=== PATIENT | male | born 1955 | race Caucasian/White ===

== ENCOUNTER 2019-02-08 17:09 | Emergency (ER) | payer BC ==
[2019-02-08] MEDS ORDERED: TETANUS & DIPHTHERIA TOX,ADULT 0.5 ML VIAL ONE (17:39)
[2019-02-08] MEDS ORDERED: LIDOCAINE 1% 20 ML MDV ONE (17:39)
--- NOTE | 2019-02-08 18:15 | EDPHYS ---
Physician Documentation [facility] Name: Shahriar Timmons Age: 63 yrs Sex: Male : 1955 Arrival Date: 02/08/2019 Time: 17:15 Bed 8 Private MD: ED Physician Jimmy Schmitz HPI: 02/08 17:20 This 63 yrs old Male presents to ER via Ambulatory with complaints of jmm Puncture Wound To Leg. 17:20 The patient presents with an injury. Onset: The symptoms/episode began/occurred jmm acutely, just prior to arrival. Modifying factors: The symptoms are alleviated by nothing. the symptoms are aggravated by nothing. Associated signs and symptoms: Pertinent positives: swelling. This is a 63 year old male with no known chronic medical conditions that presents to the ED with complaints of right thigh pain after accidently stabbing himself with a pocket knife. Patient is not UTD on immunizations. . Historical: - Allergies: 17:36 No Known Allergies; la1 - PMHx: 17:36 None; la1 - Immunization history:: Adult Immunizations up to date. - Social history:: Smoking status: Patient uses tobacco products, smokes two packs cigarettes per day. - Ebola Screening: : Patient denies travel to an Ebola-affected area in the 21 days before illness onset. ROS: 17:20 Constitutional: Negative for fever, chills, and weight loss, Cardiovascular: Negative jmm for chest pain, palpitations, and edema, Respiratory: Negative for shortness of breath, cough, wheezing, and pleuritic chest pain. 17:20 Skin: Positive for laceration(s). 17:20 All other systems are negative. Exam: 17:20 Constitutional: This is a well developed, well nourished patient who is awake, alert, jmm and in no acute distress. Head/Face: atraumatic. Eyes: EOMI, no conjunctival erythema appreciated ENT: Moist Mucus Membranes Neck: Trachea midline, Supple Chest/axilla: Normal chest wall appearance and motion. Cardiovascular: Regular rate and rhythm. No edema appreciated Respiratory: Normal respirations, no respiratory distress appreciated Abdomen/GI: Non distended, soft Back: Normal ROM 17:20 Musculoskeletal/extremity: ROM: intact in all extremities. 17:20 Skin: 1.5 cm laceration noted to the right posterior thigh, no active bleeding appreciated. 17:20 Neuro: Orientation: is normal, Mentation: is normal, Memory: is normal. 17:20 Psych: Behavior/mood is pleasant, cooperative. Vital Signs: 17:36 BP 134 / 91; Pulse 69; Resp 16; Temp 97.6; Pulse Ox 100% on R/A; Weight 77.11 kg; la1 Height 5 ft. 9 in. (175.26 cm); 17:36 Body Mass Index 25.10 (77.11 kg, 175.26 cm) la1 Laceration: 18:13 Wound Repair of 1.5cm ( 0.6in ) subcutaneous laceration to right hamstring. Distal m neuro/vascular/tendon intact. Anesthesia: Local anesthetic administered with 5 mls of 1% lidocaine. Wound prep: Simple cleansing with betadine by me. Skin closed with 2 4-0 Prolene using simple sutures and sterile technique. Patient tolerated well. MDM: 17:20 Patient medically screened. fallon 18:13 Data reviewed: vital signs, nurses notes. Counseling: I had a detailed discussion with hi the patient and/or guardian regarding: the historical points, exam findings, and any diagnostic results supporting the discharge/admit diagnosis, the need for outpatient follow up, to return to the emergency department if symptoms worsen or persist or if there are any questions or concerns that arise at home. ED course: Patient given wound infection return precautions. Patient understood and agrees with the plan of care. . 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 Lot #: [id number]. } Route: IM; Site: right deltoid; 17:50 Drug: Lidocaine (1 %) 20 ml Volume: 20 ml; Route: Infiltration; la1 Disposition: 02/08/19 18:15 Discharged to Home. Impression: Right Leg Laceration. - Condition is Stable. - Discharge Instructions: Laceration Care, Adult. - Prescriptions for Cephalexin 500 mg Oral Capsule - take 1 capsule by ORAL route every 6 hours for 10 days; 40 capsule. - Medication Reconciliation Form, Thank You Letter, Antibiotic Education, Prescription Opioid Use form. - Follow up: Private Physician; When: 7 - 10 days; Reason: Recheck today's complaints, Continuance of care, Staple/Suture removal, Re-evaluation by your physician. Addendum: 02/10/2019 13:16 Co-signature as Attending Physician, Jimmy Schmitz MD I agree with the assessment and c weinstein plan of care. Signatures: Jimmy Schmitz MD MD cha Mickail, Joel, PA PA jmm Attema, Lee RN RN la1 Corrections: (The following items were deleted from the chart) 02/08 18:29 18:15 02/08/2019 18:15 Discharged to Home. Impression: Right Leg Laceration. Condition la1 is Stable. Forms are Medication Reconciliation Form, Thank You Letter, Antibiotic Education, Prescription Opioid Use. Follow up: Private Physician; When: 7 - 10 days; Reason: Recheck today's complaints, Continuance of care, Staple/Suture removal, Re-evaluation by your physician. hi
--- NOTE | 2019-02-08 18:15 | ER ---
Nurse's Notes [facility] Name: Shahriar Timmons Age: 63 yrs Sex: Male : 1955 Arrival Date: 02/08/2019 Time: 17:15 Bed 8 Private MD: Diagnosis: Right Leg Laceration Presentation: 02/08 17:35 Presenting complaint: Patient states: I was trying to close my pocket knife against my la1 leg and accidently poked myself in the right thigh. Transition of care: patient was not received from another setting of care. Onset of symptoms was February 08, 2019. Risk Assessment: Do you want to hurt yourself or someone else? Patient reports no desire to harm self or others. Initial Sepsis Screen: Does the patient meet any 2 criteria? No. Patient's initial sepsis screen is negative. Does the patient have a suspected source of infection? No. Patient's initial sepsis screen is negative. Care prior to arrival: None. 17:35 Method Of Arrival: Ambulatory la1 17:35 Acuity: SB 4 la1 Historical: - Allergies: 17:36 No Known Allergies; la1 - PMHx: 17:36 None; la1 - Immunization history:: Adult Immunizations up to date. - Social history:: Smoking status: Patient uses tobacco products, smokes two packs cigarettes per day. - Ebola Screening: : Patient denies travel to an Ebola-affected area in the 21 days before illness onset. Screenin:37 Abuse screen: Denies threats or abuse. Nutritional screening: No deficits noted. la1 Tuberculosis screening: No symptoms or risk factors identified. Fall Risk None identified. Assessment: 17:36 General: Appears in no apparent distress. Behavior is calm, cooperative. Pain: la1 Complains of pain in right hamstring. Neuro: Level of Consciousness is awake, alert, obeys commands, Oriented to person, place, time, situation. Cardiovascular: Capillary refill < 3 seconds Patient's skin is warm and dry. Cardiovascular:. Respiratory: Airway is patent Respiratory effort is even, unlabored, Respiratory pattern is regular, symmetrical. GI: No signs and/or symptoms were reported involving the gastrointestinal system. : No signs and/or symptoms were reported regarding the genitourinary system. Musculoskeletal: Circulation, motion, and sensation intact. Capillary refill < 3 seconds, is brisk, in bilateral toes. Vital Signs: 17:36 BP 134 / 91; Pulse 69; Resp 16; Temp 97.6; Pulse Ox 100% on R/A; Weight 77.11 kg; la1 Height 5 ft. 9 in. (175.26 cm); 17:36 Body Mass Index 25.10 (77.11 kg, 175.26 cm) la1 ED Course: 17:15 Patient arrived in ED. cf2 17:19 Roger Paige PA is PHCP. [facility] 17:19 Jimmy Schmitz MD is Attending Physician. [facility] 17:35 Handy Willard, RN is Primary Nurse. la1 17:35 Triage completed. la1 17:36 Arm band placed on left wrist. la1 17:37 Patient has correct armband on for positive identification. la1 18:29 No provider procedures requiring assistance completed. Patient did not have IV access la1 during this emergency room visit. 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 Exp: la1 09/06/2020. Lot #: [id number]. } Route: IM; Site: right deltoid; 17:50 Drug: Lidocaine (1 %) 20 ml Volume: 20 ml; Route: Infiltration; la1 Outcome: 18:15 Discharge ordered by . [facility] 18:29 Discharged to home ambulatory. la1 18:29 Condition: good 18:29 Discharge instructions given to patient, Instructed on discharge instructions, follow up and referral plans. medication usage, Demonstrated understanding of instructions, follow-up care, medications, wound care, Prescriptions given X 1. 18:29 Patient left the ED. la1 Signatures: Roger Paige PA PA Handy Betancourt, RN RN la1 Phylicia Maxwell cf2
[2019-02-08 21:00] VITALS: BP 134/91; TEMP 97.6; O2SAT 100
== END 2019-02-08 18:29 | disposition home or self-care (01) ==
LOC: ER 17:09
PROC: 0JQL0ZZ Repair Right Upper Leg Subcutaneous Tissue and Fascia, Open Approach (ICD-10-PCS; principal; 2019-02-08)
DX: S71.111A Laceration without foreign body, right thigh, initial encounter (principal); W26.0XXA Contact with knife, initial encounter; Y93.9 Activity, unspecified; Y92.9 Unspecified place or not applicable; F17.210 Nicotine dependence, cigarettes, uncomplicated; Z23 Encounter for immunization
CPT/HCPCS: 90471; 90714; 99283

== ENCOUNTER 2022-10-02 04:39 | Observation (INO) | payer OTHER ==
[2022-10-02] MEDS ORDERED: ALBUTEROL 2.5 MG/3 ML NEB SOL ONE ×2 (05:29→05:59)
[2022-10-02] MEDS ORDERED: METHYLPREDNISOLONE 125 MG INJ ONE (05:29)
[2022-10-02] MEDS ORDERED: IPRATROPIUM BROM 0.5MG/2.5ML ONE (05:29)
[2022-10-02] MEDS ORDERED: NA CHLORIDE 0.9% 1,000 ML ONE (05:30)
[2022-10-02] MEDS ORDERED: GUAIFENESIN/DM 5 ML UCUP ONE (05:31)
[2022-10-02 05:51] LABS: Absolute Lymphocytes (CBC) 0.2 K/uL (0.7-4.9); Hematocrit 37.1 % (39.6-49.0); MCV 106.8 fL (80-100); MPV 9.1 fL (7.6-11.3); Protime INR 1.07; RBC Red Blood Cell Count 3.47 M/uL (4.33-5.43)
[2022-10-02 06:08] LABS: Albumin 2.7 g/dL (3.4-5.0); Bilirubin Direct 0.4 mg/dL (0-0.2); Bilirubin Indirect, Calculated 0.4 mg/dL (0.2-0.8); Bilirubin Total 0.8 mg/dL (0.2-1.0); Protein, Total 6.5 g/dL (6.4-8.2); Troponin High Sensitivity 13.9 pg/mL (<58.9)
[2022-10-02] MEDS ORDERED: Magnesium Sulfate 2gm IVPB 2 G/50 ML BAG IV ONE (06:36)
[2022-10-02] MEDS ORDERED: D5 0.9 NS 1,000 ML IV ONE (06:37)
[2022-10-02] MEDS ORDERED: D10W 250 ML IV ONE (06:37)
--- NOTE | 2022-10-02 06:51 | EDPHYS ---
Physician Documentation [facility] Name: Shahriar Timmons Age: 67 yrs Sex: Male : 1955 Arrival Date: 10/02/2022 Time: 04:39 Bed 8 Private MD: ED Physician Eliazar Dave HPI: 10/02 04:54 This 67 yrs old Male presents to ER via Ambulatory with complaints of sp4 Breathing Difficulty. 06:41 67-year-old male presents with acute worsening of shortness of breath, wheezing, and sp4 cough. Patient reports 49-year-old long history of tobacco smoking. Patient smoked up to 2 packs of cigarettes a day. Patient reports that his shortness of breath is markedly worsened last night, he has not been properly diagnosed with COPD yet. Patient's primary physician is Dr. Sands.. Historical: - Allergies: 04:50 Quinidine Sulfate; as6 - PMHx: 04:50 None; as6 - PSHx: 04:50 neck; hip; ankle; as6 - Immunization history:: Client reports having NOT received the Covid vaccine. - Social history:: Smoking status: Patient reports the use of cigarette tobacco products, smokes one-half pack cigarettes per day, smokes one pack cigarettes per day. - Family history:: not pertinent. ROS: 06:41 Constitutional: Negative for fever, chills, and weight loss, Eyes: Negative for injury, sp4 pain, redness, and discharge, ENT: Negative for injury, pain, and discharge, Neck: Negative for injury, pain, and swelling, Cardiovascular: Negative for chest pain, palpitations, and edema, Respiratory: Positive for shortness of breath, wheezing, cough. Negative for pleuritic chest pain Abdomen/GI: Negative for abdominal pain, nausea, vomiting, diarrhea, and constipation, Back: Negative for injury and pain, : Negative for injury, bleeding, discharge, and swelling, MS/Extremity: Negative for injury and deformity, Skin: Negative for injury, rash, and discoloration, Neuro: Negative for headache, weakness, numbness, tingling, and seizure, Psych: Negative for depression, anxiety, Allergy/Immunology: Negative for hives, rash, and allergies Endocrine: Negative for neck swelling, polydipsia, polyuria, polyphagia, and weight changes Hematologic/Lymphatic: Negative for swollen nodes, abnormal bleeding, and unusual bruising Exam: 06:41 Constitutional: This is a well developed, well nourished patient who is awake, alert, sp4 and in no acute distress. Ill-appearing but nontoxic. Head/Face: Normocephalic, atraumatic. Eyes: Pupils equal round and reactive to light, extra-ocular motions intact. Lids and lashes normal. Conjunctiva and sclera are not injected. Cornea within normal limits. Periorbital areas with no swelling, redness, or edema. ENT: Nares patent. No nasal discharge, no septal abnormalities noted. Tympanic membranes are normal and external auditory canals are clear. Oropharynx with no redness, swelling, or masses, exudates, or evidence of obstruction, uvula midline. Mucous membranes moist. Neck: Trachea midline, no thyromegaly or masses palpated, and no cervical lymphadenopathy. Supple, full range of motion without nuchal rigidity, or vertebral point tenderness. Chest/axilla: Normal chest wall appearance and motion. Nontender with no deformity. No lesions are appreciated. Cardiovascular: Regular rate and rhythm with a normal S1 and S2. No gallops, murmurs, or rubs. Normal PMI, no JVD. No pulse deficits. Respiratory: Lungs have equal breath sounds bilaterally, bilateral expiratory wheezing on auscultation, mild retractions, dyspnea and tachypnea. Abdomen/GI: Soft, non-tender, with normal bowel sounds. No distension or tympany. No guarding or rebound. No evidence of tenderness throughout. Back: No spinal tenderness. No costovertebral tenderness. Male : Normal genitalia with no discharge or lesions. Skin: Warm, dry with normal turgor. Normal color with no rashes, no lesions, and no evidence of cellulitis. MS/ Extremity: Pulses equal, no cyanosis. Neurovascular intact. Full, normal range of motion. Neuro: Awake and alert, GCS 15, oriented to person, place, time, and situation. Cranial nerves II-XII grossly intact. Motor strength 5/5 in all extremities. Sensory grossly intact. Psych: Awake, alert, with orientation to person, place and time. Behavior, mood, and affect are within normal limits 06:41 ECG was reviewed by the Attending Physician. Sinus tachycardia at a rate of 108, EKG sp4 time 0508, there are premature atrial complexes. Otherwise normal EKG Vital Signs: 04:47 BP 128 / 58; Pulse 117; Resp 18 S; Temp 99.5(O); Pulse Ox 98% on R/A; Weight 74.84 kg as6 (R); Height 5 ft. 9 in. (R); 05:45 BP 118 / 70; Pulse 113; Resp 20; Pulse Ox 98% on R/A; kd3 04:47 Body Mass Index 24.37 (74.84 kg, 175.26 cm) as6 MDM: 04:54 Patient medically screened. sp4 06:49 ED course: EXAM: XR Chest, 1 View CLINICAL HISTORY: The patient is 67 years old and is sp4 Male; COPD TECHNIQUE: Frontal view of the chest. COMPARISON: No relevant prior studies available. FINDINGS: Lungs: Unremarkable. No consolidation. Pleural space: Unremarkable. No pneumothorax. Heart: Unremarkable. Mediastinum: Unremarkable. Bones/joints: Disc space narrowing with degenerative endplate changes in the spine. Postsurgical changes in the cervical spine. IMPRESSION: No acute findings in the chest. . 06:52 Differential diagnosis: Anemia asthma, Bronchitis CHF exacerbation, Chronic Obstructive sp4 Pulmonary Disease Myocardial Infarction pneumonia, Psychogenic pulmonary edema, Pulmonary Embolism Sepsis Unstable Angina. Data reviewed: vital signs, nurses notes, old medical records, lab test result(s), cardiac enzymes, CBC, electrolytes, Flu: negative hepatic panel, EKG, radiologic studies, plain films. Consideration of Admission/Observation Patient was admitted/placed on observation. Escalation of care including admission/observation considered. Management of patient was discussed with the following: Hospitalist: Dr. Sands. ED course: Patient's labs reveal significant hyponatremia sodium 122, unusual hypoglycemia blood sugar 43, hypochloremia, hypoalbuminemia albumin 2.7, hypomagnesemia magnesium of 1. Also BNP is elevated at 1586. Patient warrants slow saline infusion with D5 for electrolyte correction and also IV magnesium infusion. He warrants admission for COPD management and proper diagnosis perhaps pulmonary test . Patient was discussed with his primary MD and admitted for hospital management. . 10/02 04:53 Order name: BMP; Complete Time: 06:18 sp4 10/02 04:53 Order name: Blood Culture Adult (2) sp4 10/02 04:53 Order name: CBC with Diff sp4 10/02 04:53 Order name: CPK; Complete Time: 06:18 sp4 10/02 04:53 Order name: Hepatic Function; Complete Time: 06:18 sp4 10/02 04:53 Order name: Lipase; Complete Time: 06:18 sp4 10/02 04:53 Order name: Magnesium; Complete Time: 06:18 sp4 10/02 04:53 Order name: NT PRO-BNP; Complete Time: 06:18 sp4 10/02 04:53 Order name: PT-INR; Complete Time: 06:18 sp4 10/02 04:53 Order name: Ptt, Activated; Complete Time: 06:18 sp4 10/02 04:53 Order name: Troponin HS; Complete Time: 06:18 sp4 10/02 05:58 Order name: CBC Smear Scan EDMS 10/02 07:09 Order name: Glucose, Ancillary Testing EDMS 10/02 04:55 Order name: Chest Single View XRAY sp4 10/02 04:53 Order name: EKG; Complete Time: 04:54 sp4 10/02 04:53 Order name: Cardiac monitoring; Complete Time: 05:43 sp4 10/02 04:53 Order name: EKG - Nurse/Tech; Complete Time: 05:43 sp4 10/02 04:53 Order name: IV Saline Lock; Complete Time: 05:43 sp4 10/02 04:53 Order name: Labs collected and sent; Complete Time: 05:43 sp4 10/02 04:53 Order name: O2 Per Protocol; Complete Time: 05:43 sp4 10/02 04:53 Order name: O2 Sat Monitoring; Complete Time: 05:43 sp4 EC:41 Rate is 108 beats/min. Rhythm is irregular, Sinus tachycardia with PACs. QRS Baker is sp4 Normal. MA interval is normal. QRS interval is normal. QT interval is normal. T waves are Normal. No ST changes noted. Clinical impression: No evidence of ischemia. Interpreted by me. Administered Medications: 05:43 Drug: Albuterol Inhalation 2.5 mg Route: Inhalation; kd3 05:43 Drug: MethylPrednisoLONE IVP 125 mg Route: IVP; Site: right antecubital; kd3 07:52 Follow up: Response: No adverse reaction ph 05:43 Drug: Dextromethorphan-Guaifenesin PO Liquid 10 mg-100 mg/5 mL 10 ml Route: PO; kd3 07:51 Follow up: Response: No adverse reaction ph 05:43 Drug: Ipratropium Inhalation Aerosol 0.5 mg Route: Inhalation; kd3 07:51 Follow up: Response: No adverse reaction ph 05:43 Drug: NS 0.9% IV 1000 ml Route: IV; Rate: 125 ml/hr; Site: left forearm; kd3 06:34 Follow up: IV Status: Order to discontinue infusion; IV Intake: 200ml kd3 06:08 Drug: Albuterol Inhalation 2.5 mg Route: Inhalation; kd3 06:34 Drug: D50W IVP 50 ml Route: IVP; Site: right forearm; kd3 07:49 Follow up: Response: No adverse reaction; Blood sugar is elevated ph 06:34 Drug: Magnesium Sulfate IVPB 2 grams Route: IVPB; Infused Over: 2 hrs; Site: right kd3 forearm; 07:49 Follow up: Response: No adverse reaction; IV Status: Infusion continued upon admission ph 06:34 Drug: D5-NS IV 1000 ml Route: IV; Rate: 125 ml/hr; Site: right forearm; kd3 07:49 Follow up: Response: No adverse reaction; IV Status: Infusion continued upon admission ph 07:40 Drug: Albuterol Inhalation 2.5 mg Route: Inhalation; ph Disposition Summary: 10/02/22 06:50 Hospitalization Ordered Hospitalization Status: Inpatient Admission sp4 Provider: Atilio Sands4 Location: Telemetry/[facility] (Inpatient) sp4 Condition: Stable sp4 Problem: new sp4 Symptoms: have improved sp4 Bed/Room Type: Standard sp4 Room Assignment: 214(10/02/22 07:35) Diagnosis - COPD/ Chronic obstructive pulmonary disease with (acute) exacerbation sp4 - Acute hyponatremia, normovolemic hyponatremia, hypoglycemia, hypomagnesemia. sp4 Exacerbation of chronic bronchitis Forms: - Medication Reconciliation Form sp4 - SBAR form sp4 Signatures: Dispatcher [employer] Nevaeh Perez RN RN dw Hall, Patricia RN RN Angie Castaneda Ashby, RN RN as6 Nellie Perez RN RN kd3 Eliazar Dave MD MD sp4 Corrections: (The following items were deleted from the chart) 07:32 06:50 sp4 eb 07:35 07:32 211 eb dw
--- NOTE | 2022-10-02 06:51 | ER ---
Nurse's Notes [facility] Name: Shahriar Timmons Age: 67 yrs Sex: Male : 1955 Arrival Date: 10/02/2022 Time: 04:39 Bed 8 Private MD: Diagnosis: COPD/ Chronic obstructive pulmonary disease with (acute) exacerbation;Acute hyponatremia, normovolemic hyponatremia, hypoglycemia, hypomagnesemia. Exacerbation of chronic bronchitis Presentation: 10/02 04:47 Chief complaint: Patient states: "I am having trouble breathing". Coronavirus screen: as6 At this time, the client does not indicate any symptoms associated with coronavirus-19. Ebola Screen: No symptoms or risks identified at this time. Initial Sepsis Screen: Does the patient meet any 2 criteria? No. Patient's initial sepsis screen is negative. Does the patient have a suspected source of infection? No. Patient's initial sepsis screen is negative. Risk Assessment: Do you want to hurt yourself or someone else? Patient reports no desire to harm self or others. Onset of symptoms was October 02, 2022. 04:47 Method Of Arrival: Ambulatory as6 04:47 Acuity: SB 3 as6 Historical: - Allergies: 04:50 Quinidine Sulfate; as6 - PMHx: 04:50 None; as6 - PSHx: 04:50 neck; hip; ankle; as6 - Immunization history:: Client reports having NOT received the Covid vaccine. - Social history:: Smoking status: Patient reports the use of cigarette tobacco products, smokes one-half pack cigarettes per day, smokes one pack cigarettes per day. - Family history:: not pertinent. Screenin:44 [facility] ED Fall Risk Assessment (Adult) History of falling in the last 3 months, kd3 including since admission No falls in past 3 months (0 pts) Confusion or Disorientation No (0 pts) Intoxicated or Sedated No (0 pts) Impaired Gait No (0 pts) Mobility Assist Device Used No (0 pt) Altered Elimination No (0 pt) Score/Fall Risk Level 0 - 2 = Low Risk Maintained a safe environment. Abuse screen: Denies threats or abuse. Denies injuries from another. Nutritional screening: No deficits noted. Tuberculosis screening: No symptoms or risk factors identified. Assessment: 05:44 General: Appears in no apparent distress. Behavior is calm, cooperative. Pain: Denies kd3 pain. Cardiovascular: Rhythm is regular. Respiratory: Airway is patent Trachea midline Respiratory effort is labored, Breath sounds are clear bilaterally. 07:46 Reassessment: Patient appears in no apparent distress at this time. Patient and/or ph family updated on plan of care and expected duration. Pain level reassessed. Patient is alert, oriented x 3, equal unlabored respirations, skin warm/dry/pink. Report called to second floor RN. Vital Signs: 04:47 BP 128 / 58; Pulse 117; Resp 18 S; Temp 99.5(O); Pulse Ox 98% on R/A; Weight 74.84 kg as6 (R); Height 5 ft. 9 in. (R); 05:45 BP 118 / 70; Pulse 113; Resp 20; Pulse Ox 98% on R/A; kd3 04:47 Body Mass Index 24.37 (74.84 kg, 175.26 cm) as6 ED Course: 04:42 Patient arrived in ED. ja2 04:50 Triage completed. as6 04:52 Arm band placed on. as6 04:53 Eliazar Dave MD is Attending Physician. sp4 04:59 Nellie Perez, SWEETIE is Primary Nurse. kd3 05:29 Chest Single View XRAY In Process Unspecified. EDMS 05:43 Troponin HS Sent. kd3 05:43 Ptt, Activated Sent. kd3 05:43 PT-INR Sent. kd3 05:43 NT PRO-BNP Sent. kd3 05:43 Magnesium Sent. kd3 05:43 Lipase Sent. kd3 05:43 Hepatic Function Sent. kd3 05:43 CPK Sent. kd3 05:43 CBC with Diff Sent. kd3 05:43 Blood Culture Adult (2) Sent. kd3 05:43 BMP Sent. kd3 05:44 Inserted saline lock: 20 gauge in right forearm, using aseptic technique. Blood kd3 collected. 06:49 Atilio Sands MD is Hospitalizing Provider. sp4 07:46 Patient has correct armband on for positive identification. Bed in low position. Call ph light in reach. Side rails up X 1. Client placed on continuous cardiac and pulse oximetry monitoring. NIBP monitoring applied. 07:46 No provider procedures requiring assistance completed. Patient admitted, IV remains in ph place. Administered Medications: 05:43 Drug: Albuterol Inhalation 2.5 mg Route: Inhalation; kd3 05:43 Drug: MethylPrednisoLONE IVP 125 mg Route: IVP; Site: right antecubital; kd3 07:52 Follow up: Response: No adverse reaction ph 05:43 Drug: Dextromethorphan-Guaifenesin PO Liquid 10 mg-100 mg/5 mL 10 ml Route: PO; kd3 07:51 Follow up: Response: No adverse reaction ph 05:43 Drug: Ipratropium Inhalation Aerosol 0.5 mg Route: Inhalation; kd3 07:51 Follow up: Response: No adverse reaction ph 05:43 Drug: NS 0.9% IV 1000 ml Route: IV; Rate: 125 ml/hr; Site: left forearm; kd3 06:34 Follow up: IV Status: Order to discontinue infusion; IV Intake: 200ml kd3 06:08 Drug: Albuterol Inhalation 2.5 mg Route: Inhalation; kd3 06:34 Drug: D50W IVP 50 ml Route: IVP; Site: right forearm; kd3 07:49 Follow up: Response: No adverse reaction; Blood sugar is elevated ph 06:34 Drug: Magnesium Sulfate IVPB 2 grams Route: IVPB; Infused Over: 2 hrs; Site: right kd3 forearm; 07:49 Follow up: Response: No adverse reaction; IV Status: Infusion continued upon admission ph 06:34 Drug: D5-NS IV 1000 ml Route: IV; Rate: 125 ml/hr; Site: right forearm; kd3 07:49 Follow up: Response: No adverse reaction; IV Status: Infusion continued upon admission ph 07:40 Drug: Albuterol Inhalation 2.5 mg Route: Inhalation; Medication: 05:44 VIS not applicable for this client. kd3 Intake: 06:34 IV: 200ml; Total: 200ml. kd3 Outcome: 06:50 Decision to Hospitalize by Provider. sp4 07:48 Admitted to Med/surg accompanied by tech, via wheelchair, room 214, with chart. ph 07:48 Condition: stable 08:07 Patient left the ED. ph Signatures: Dispatcher [employer] EDBela Grossman RN RN ph Johnna Sumner Ashby RN RN as6 Nellie Perez RN RN kd3 Eliazar Dave MD MD sp4 Corrections: (The following items were deleted from the chart) 07:49 07:49 IV Status: Infusion continued upon admission ph ph
[2022-10-02] MEDS ORDERED: D5 0.9 NS 1,000 ML IV SCH (08:06)
[2022-10-02] MEDS ORDERED: ACETAMINOPHEN 500 MG TAB PO PRN (08:06)
[2022-10-02] MEDS: INSULIN -REGULAR HUMAN 50 UNIT/0.5 ML ML SQ SCH ×4 (08:06→20:04)
[2022-10-02] MEDS ORDERED: PROMETHAZINE 25 MG TABLET PO PRN (08:06)
[2022-10-02] MEDS ORDERED: ALBUTEROL 2.5 MG/3 ML NEB SOL NEB PRN (08:06)
[2022-10-02 08:20] VITALS: O2SAT 98
[2022-10-02] MEDS ORDERED: ALPRAZOLAM 1 MG TABLET PO PRN (08:30)
[2022-10-02 08:51] LABS: Anisocytosis 1+; Blood Morphology Comment NOTED (NOT SEEN); Macrocytosis 1+; Platelet Estimate ADEQ; Poikilocytosis 1+; White Blood Cell Scan NEUTROPHILIA (OK)
[2022-10-02 08:52] LABS: Ovalocytes SLIGHT
[2022-10-02 09:10] LABS: Thyroid Stimulating Hormone 1.33 uIU/mL (0.358-3.740)
[2022-10-02 09:54] VITALS: BMI 24.3
--- NOTE | 2022-10-02 11:16 | EKG ---
Test Date: 2022-10-02 Test Time: 05:08:15 Consulting Utility Forester: JEANIE MEASUREMENT RESULTS: Intervals: Rate: 108 MN: 158 QRSD: 84 QT: 342 QTc: 458 Morrill: P: 58 MN: 158 QRS: 70 T: 70 INTERPRETIVE STATEMENTS: Sinus tachycardia with premature atrial complexes Otherwise normal ECG Compared to ECG 06/05/2010 09:50:48 Atrial premature complex(es) now present Sinus rhythm no longer present Electronically Signed On 10-02-22 11:16:05 CDT by Leonardo Jones
[2022-10-02] MEDS: NICOTINE 14 MG/PAT TD SCH (11:41)
[2022-10-02] MEDS ORDERED: TRAMADOL HCL 50 MG TAB PO PRN (14:20)
[2022-10-02 14:47] LABS: Specific Gravity < 1.005 (1.005-1.030); Urine Bacteria <20 /HPF (<20); Urine Bilirubin NEGATIVE (Negative); Urine Blood Negative (Negative); Urine Clarity Turbid (Clear); Urine Color Light-Yellow (Yellow); Urine Glucose NEGATIVE (Negative); Urine Protein NEGATIVE (Negative); Urine RBC <5 /HPF (None Seen); Urine Urobilinogen Normal (Normal); Urine pH 5.5 (5.0-7.0)
--- NOTE | 2022-10-02 15:10 | P.HP ---
Patient History Date of Service: 10/02/22 Reason for admission: Shortness of breath History of Present Illness: 67-year-old gentleman with a history of COPD, tobacco use, polycythemia and thrombocytopenia presented to the emergency department with a complaint of shortness of breath of onset last night. Patient reports history of intermittent shortness of breath. He denied any definite diagnosis of COPD. Shortness of breath associated with nonproductive cough. He denied any fever or chills. He denied any orthopnea or paroxysmal nocturnal dyspnea. He denied any palpitation. Patient noted to have hyponatremia with sodium of 122, metabolic acidosis and thrombocytopenia in the ED. Chest x-ray showed no acute disease. Patient is hospitalized for further management. Allergies quinidine Allergy (Verified 10/02/22 08:06) Itching/Hives/Rash Home Medications: Magnesium Oxide 1 cap PO BID 10/02/22 Tramadol HCl [Ultram] 1 tab PO Q4HP PRN 10/02/22 - Past Medical/Surgical History Has patient received pneumonia vaccine in the past: No Diabetic: No -: COPD -: History polycythemia -: Thrombocytopenia -: Right total hip surgery -: Spinal Fusion - Family History Mother -: Other (see notes) (COPD) - Social History Smoking Status: Former smoker CD- Drugs: No Place of Residence: Home Review of Systems Other: Except as documented, all other systems reviewed and negative. Physical Examination - Vital Signs Temperature: 98.0 F Blood Pressure: 105/70 Pulse: 90 Respirations: 17 Pulse Ox (%): 97 - Physical Exam General: Alert, In no apparent distress, Oriented x3 HEENT: PERRLA, Mucous membr. moist/pink, Sclerae nonicteric Neck: Supple, JVD not distended Respiratory: Diminished (Bilateral), Other (No wheezes or crackles) Cardiovascular: No edema, Regular rate/rhythm, Normal S1 S2 Gastrointestinal: Normal bowel sounds, Soft and benign, Non-distended, No tenderness Musculoskeletal: No swelling, No tenderness Integumentary: No rashes, No cyanosis Neurological: Normal speech, Normal strength at 5/5 x4 extr, Cranial nerves 3-12 intact Lymphatics: No axilla or inguinal lymphadenopathy - Studies Laboratory Data (last 24 hrs) 10/02/22 05:33: PT 11.8, INR 1.07, APTT 31.5 10/02/22 05:33: WBC 7.60, Hgb 12.6 L, Hct 37.1 L, Plt Count 146 L 10/02/22 05:33: Sodium 122 L, Potassium 4.0, BUN 11, Creatinine 1.13, Glucose 43 L*, Magnesium 1.0 L*, Total Bilirubin 0.8, AST 30, ALT 39, Alkaline Phosphatase 95, Lipase 22 Assessment and Plan - Problems (Diagnosis) (1) COPD exacerbation Current Visit: Yes Status: Acute (2) Hyponatremia Current Visit: Yes Status: Acute (3) Metabolic acidosis Current Visit: Yes Status: Acute (4) Thrombocytopenia Current Visit: Yes Status: Acute (5) Hypoglycemia Current Visit: Yes Status: Acute - Plan Admit patient to the medical floor. Continue treatment for COPD exacerbation with steroid, scheduled bronchodilators. No indication for antibiotics at this time. Hypoglycemia likely secondary to depleted glycogen stores. Status post IV D10 infusion. Blood sugar levels improved. Monitor CBC to follow thrombocytopenia. Check serum and urine osmolality. Check serum alcohol level. Normal TSH Check cortisol level. I suspect beer potomania. Monitor BMP closely to follow sodium level closely. IV D5NS to treat hypoglycemia, hyponatremia and metabolic acidosis. - Advance Directives Does patient have a Living Will: No Does patient have a Durable POA for Healthcare: No
[2022-10-02 15:55] LABS: Potassium 4.6 mEq/L (3.5-5.1)
[2022-10-02] MEDS: METHYLPREDNISOLONE 40 MG INJ IV SCH ×2 (17:50→23:56)
[2022-10-02] MEDS: D5 0.9 NS 1,000 ML IV SCH (17:50)
[2022-10-02] MEDS: TRAMADOL HCL 50 MG TAB PO PRN (20:03)
[2022-10-02] MEDS: MAGNESIUM OXIDE 500 MG PO SCH (20:04)
--- NOTE | 2022-10-02 20:45 | RAD REPORT ---
EXAM DESCRIPTION: RAD - Chest Single View - 10/02/2022 5:27 am CLINICAL HISTORY: The patient is 67 years old and is Male; COPD TECHNIQUE: Frontal view of the chest. COMPARISON: No relevant prior studies available. FINDINGS: Lungs: Unremarkable. No consolidation. Pleural space: Unremarkable. No pneumothorax. Heart: Unremarkable. Mediastinum: Unremarkable. Bones/joints: Disc space narrowing with degenerative endplate changes in the spine. Postsurgical changes in the cervical spine. IMPRESSION: No acute findings in the chest. Electronically signed by: Ranjan Stephen MD 10/02/2022 6:18 AM CDT Due to temporary technical issues with the PACS/Fluency reporting system, reports are being signed by the in house radiologists without review as a courtesy to insure prompt reporting. The interpreting radiologist is fully responsible for the content of the report.
[2022-10-02 21:26] LABS: Potassium 4.6 mEq/L (3.5-5.1)
[2022-10-03 04:19] LABS: Potassium 4.5 mEq/L (3.5-5.1)
[2022-10-03] MEDS: METHYLPREDNISOLONE 40 MG INJ IV SCH (05:56)
[2022-10-03] MEDS: D5 0.9 NS 1,000 ML IV SCH (06:00)
[2022-10-03] MEDS: INSULIN -REGULAR HUMAN 50 UNIT/0.5 ML ML SQ SCH ×2 (07:30→11:30)
[2022-10-03] MEDS: MAGNESIUM OXIDE 500 MG PO SCH (08:22)
[2022-10-03 08:42] VITALS: BP 147/83; TEMP 97.2
[2022-10-03] MEDS ORDERED: predniSONE 20 MG TAB PO SCH (09:00)
[2022-10-03] MEDS: NICOTINE 14 MG/PAT TD SCH (09:00)
[2022-10-03] MEDS: TRAMADOL HCL 50 MG TAB PO PRN (09:58)
[2022-10-03 10:04] LABS: Potassium 4.3 mEq/L (3.5-5.1)
--- NOTE | 2022-10-03 11:55 | P.CNS ---
Date of Consult: 10/03/22 Reason for Consult: COPD Chief Complaint: COPD exacerbation History of Present Illness: Patient is 67 years of age with a history of COPD, progressively worse for the past 2 to 4 months. Patient is a heavy smoker 1-1/2 packs a day not use any inhalers has some peripheral vascular disease on the right side denies any fever chills or cough Allergies quinidine Allergy (Verified 10/02/22 08:06) Itching/Hives/Rash Home Medications: Magnesium Oxide 1 cap PO BID 10/02/22 Tramadol HCl [Ultram] 1 tab PO Q4HP PRN 10/02/22 Albuterol Inhaler [Ventolin Inhaler*] 2 puff IH Q6H PRN 30 Days #240 aero 10/03/22 Fluticasone/Umeclidin/Vilanter [Trelegy Ellipta 100-62.5-25] 1 each IH DAILY 30 Days #30 aero 10/03/22 predniSONE [Prednisone*] 20 mg PO BID #20 tab 10/03/22 - Past Medical/Surgical History Diabetic: No -: COPD -: History polycythemia -: Thrombocytopenia -: Right total hip surgery -: Spinal Fusion - Family History Mother Medical History: Other (see notes) (COPD) - Social History Smoking Status: Current every day smoker CD- Drugs: No Place of Residence: Home Review of Systems 10-point ROS is otherwise unremarkable General: Weakness Respiratory: Shortness of Breath Physical Examination Temp Pulse Resp BP Pulse Ox 97.2 F 77 18 147/83 H 99 10/03/22 08:00 10/03/22 08:00 10/03/22 08:00 10/03/22 08:00 10/03/22 08:00 General: Alert, Oriented x3 HEENT: Atraumatic Neck: Supple Respiratory: Expiratory wheezes Cardiovascular: No edema, Normal pulses, Regular rate/rhythm, Normal S1 S2 Gastrointestinal: Normal bowel sounds, Soft and benign - Problems (1) COPD exacerbation Current Visit: Yes Status: Acute Plan: Patient is 67 years of age admitted with COPD exacerbation very heavy smoker x- ray consistent with COPD no other significant medical issues mildly hyponatremic normal white count mildly anemic change to p.o. prednisone I will also prescribe him a triple inhaler oxygenation is satisfactory of counseled him not to smoke currently and LD CT scan every year to rule out lung cancer patient stable for discharge
--- NOTE | 2022-10-03 18:02 | P.DS ---
Admission Date: 10/02/22 Discharge Date: 10/03/22 Disposition: ROUTINE DISCHARGE Reason for Admission: COPD exacerbation Hospital Course: MR MOSS COMES WITH DYSPNEA. HEHAS BEEN SMOKER FOR YEARS. HE AT LAST IS READY TO QUIT. HE IMPROVED ON IV STEROIDS, NEBS . HE IS SENT HOME ON STEROIDS ORALLY AND INHALERS FOR COPD. HIS SODIUM IMPROVED WITH IV HYDRATION. Vital Signs/Physical Exam: Temp Pulse Resp BP Pulse Ox 97.2 F 77 18 147/83 H 99 10/03/22 08:00 10/03/22 08:00 10/03/22 08:00 10/03/22 08:00 10/03/22 08:00 Laboratory Data at Discharge: WBC 7.60 thou/uL (4.3-10.9) 10/02/22 05:33 Hgb 12.6 g/dL (13.6-17.9) L 10/02/22 05:33 Hct 37.1 % (39.6-49.0) L 10/02/22 05:33 Plt Count 146 thou/uL (152-406) L 10/02/22 05:33 PT 11.8 SECONDS (9.5-12.5) 10/02/22 05:33 INR 1.07 10/02/22 05:33 APTT 31.5 SECONDS (24.3-36.9) 10/02/22 05:33 Sodium Cancelled 10/03/22 15:19 Potassium Cancelled 10/03/22 15:19 BUN Cancelled 10/03/22 15:19 Creatinine Cancelled 10/03/22 15:19 Glucose Cancelled 10/03/22 15:19 Magnesium 1.9 mg/dL (1.6-2.4) 10/02/22 14:46 Total Bilirubin 0.8 mg/dL (0.2-1.0) 10/02/22 05:33 AST 30 U/L (15-37) 10/02/22 05:33 ALT 39 U/L (16-61) 10/02/22 05:33 Alkaline Phosphatase 95 U/L (45-117) 10/02/22 05:33 Lipase 22 U/L (13-75) 10/02/22 05:33 Home Medications: Magnesium Oxide 1 cap PO BID 10/02/22 Tramadol HCl [Ultram] 1 tab PO Q4HP PRN 10/02/22 Albuterol Inhaler [Ventolin Inhaler*] 2 puff IH Q6H PRN 30 Days #240 aero 10/03/22 Fluticasone/Umeclidin/Vilanter [Trelegy Ellipta 100-62.5-25] 1 each IH DAILY 30 Days #30 aero 10/03/22 predniSONE [Prednisone*] 20 mg PO BID #20 tab 10/03/22 New Medications: predniSONE [Prednisone*] 20 mg PO BID #20 tab Fluticasone/Umeclidin/Vilanter [Trelegy Ellipta 100-62.5-25] 1 each IH DAILY 30 Days #30 aero Albuterol Inhaler [Ventolin Inhaler*] 2 puff IH Q6H PRN 30 Days #240 aero PRN Reason: Shortness Of Breath Followup: Nils Krause MD [ACTIVE - CAN ADMIT] -
== END 2022-10-03 13:25 | disposition home or self-care (01) ==
LOC: ER 04:39 → INTOOBSV 06:21 → ERHOLD 06:21 → 2ND 07:46
PROVIDERS: ADMIT Internal Medicine; ATTEND Internal Medicine
DX: J44.1 Chronic obstructive pulmonary disease with (acute) exacerbation (principal); E87.1 Hypo-osmolality and hyponatremia; E87.21 Acute metabolic acidosis; D69.6 Thrombocytopenia, unspecified; E16.2 Hypoglycemia, unspecified; F17.210 Nicotine dependence, cigarettes, uncomplicated; I73.9 Peripheral vascular disease, unspecified; Z88.8 Allergy status to other drugs, medicaments and biological substances
CPT/HCPCS: 93005; 87040 ×2; 85025; 81001; 80048 ×5; 36415 ×2; 83735 ×2; 82550; 87205; 85610; 84300; 82947 ×6; 80076; 85730; 84443; 84484; 84439; 83690; 82533; 83880; 83930; 83935; 71045; 99285; J7512; J3475; J7613 ×2; J7644; J2930; J7042 ×3; J7030; J2920 ×3; 87077; 87186; G0378